=== PATIENT | female | born 1985 | race Caucasian/White ===

== ENCOUNTER 2017-01-01 21:28 | Emergency (ER) | payer MEDICAID ==
[~2017-01-01] VITALS: Ht 157.5 cm; Wt 97.5 kg
[~2017-01-01 21:28] MED LIST: CALCIUM500 MG PO; FERROUS SULFAT325 MG PO; FOLATE1 MG PO; PRENATAL VITAMI1 T10 PO
[2017-01-01 21:42] VITALS: BP 137/60
--- NOTE | 2017-01-01 23:03 | NUR ---
PT TAKEN TO BED 5
--- NOTE | 2017-01-01 23:15 | NUR ---
Patient being evaluated by DR. RAMIREZ at bedside.
--- NOTE | 2017-01-01 23:24 | NUR ---
31Y/F PATIENT PRESENTS TO ED WITH C/O NECK PAIN X 3 DAYS . PT STATES PAIN START 3 DAYS AGO,TODAY PAIN INCREASE ALSO STATES DIARRHEA X 5, NO N/V; SKIN IS PINK/WARM/DRY; AAOX4 WITH EVEN AND STEADY GAIT; LUNGS CLEAR BL; HR EVEN AND REGULAR; PT DENIES ANY FEVER, CP, SOB, OR COUGH AT THIS TIME; PATIENT STATES PAIN OF 5/10 AT THIS TIME; VSS; PATIENT POSITIONED FOR COMFORT; HOB ELEVATED; BEDRAILS UP X2; BED DOWN. ER MD MADE AWARE OF PT STATUS.
--- NOTE | 2017-01-01 23:55 | NUR ---
Patient discharged with v/s stable. Written and verbal after care instructions given and explained. Patient alert, oriented and verbalized understanding of instructions. Ambulatory with steady gait. All questions addressed prior to discharge. ID band removed. Patient advised to follow up with PMD. Rx of MOTRIN 800 MG, ROBAXIN 500 MG given. Patient educated on indication of medication including possible reaction and side effects. Opportunity to ask questions provided and answered.
[2017-01-01 23:57] VITALS: BP 125/75
== END 2017-01-01 23:55 | disposition home or self-care (01) ==
LOC: MED 21:28
DX: S16.1XXA Strain of muscle, fascia and tendon at neck level, initial encounter (principal); F41.9 Anxiety disorder, unspecified; X58.XXXA Exposure to other specified factors, initial encounter; Y93.89 Activity, other specified; Y92.89 Other specified places as the place of occurrence of the external cause; Y99.8 Other external cause status